=== PATIENT | female | born 1930 | race Caucasian/White ===

== ENCOUNTER → 2017-04-27 | Outpatient (CLI) | payer MEDICARE, BC ==
[~2017-04-27] MED LIST: ASPIRIN PO; LISINOPRIL PO; STATIN PO
[2017-04-27 14:56] LABS: POC - CREATININE 1.26 mg/dL (0.44-1.03)
== END | disposition home or self-care (01) ==
LOC: CCAT 13:39
PROVIDERS: Internal Medicine Medical Oncology
DX: C83.30 Diffuse large B-cell lymphoma, unspecified site (principal)
CPT/HCPCS: 82565

== ENCOUNTER → 2017-05-01 | Outpatient (CLI) | payer MEDICARE, BC ==
--- NOTE | ~2017-05-01 | CT2 ---
[facility] A Service of [facility] RADIOLOGY TEXT RESULTS PATIENT: ANNE BONILLA [facility] UN[facility] #: [id number] AGE: [address]: Kole Golden MD SEX: F ORDER DR: [id number] [facility] [address] [place], [place] [address] [id number] O MR#: [id number] [facility] #: [id number] NAME: ANNE BONILLA : 1930 SEX: F STUDY DATE/TIME: 05/01/2017 10:12 UNIT: [facility] ROOM: STUDY DESCRIPTION: CT Abd and Pelv W Cont Attending Physician: Kole Golden M.D. Referring Physician: Kole Golden M.D. Ordering Physician: Kole Golden M.D. Primary Care Physician: Dianelys Dailey M.D. MEDICAL IMAGING REPORT This report is preliminary unless electronic signature is present EXAM Abdomen and pelvis CT with contrast 05/01/2017 INDICATIONS 86-year-old female with history of diffuse large B-cell lymphoma. Observation for suspected malignant neoplasm. Active malignancy. Abnormal PET CT. TECHNIQUE Contrast enhanced CT abdomen and pelvis was performed. This CT exam was performed with one or more of the following radiation dose reduction techniques: automatic exposure control, adjustment of mA and/or kV according to patient size, and iterative reconstruction. COMPARISON Correlation made with PET CT 04/26/[address] abdomen: Please see separately dictated CT chest same date for further details regarding chest findings. Included lung bases demonstrate emphysema and mild atelectasis. No aortic aneurysm or dissection. There is moderately severe atherosclerotic change of the aorta. The spleen is prominent but otherwise unremarkable. The adrenal glands are normal. Pancreas and gallbladder are unremarkable. Liver demonstrates mild fatty infiltration. Kidneys demonstrate cortical thinning bilaterally but no hydronephrosis. CT Pelvis: Bladder demonstrates mild wall thickening and there is induration of the fat planes around the bladder that could reflect mild cystitis. Correlate with urinalysis. The uterus is atrophic. There is uncomplicated [facility] A Service of [facility] RADIOLOGY TEXT RESULTS PATIENT: ANNE BONILLA LOCATION: [facility] : 30 UNIT #: [id number] AGE: [address]: Kole Golden MD SEX: F ORDER DR: diverticulosis of the colon. Stool burden most characteristic of constipation. Appendix normal. There is no evidence of bowel obstruction. There is abnormal adenopathy in the low abdomen and pelvis. There is encasement of the right external iliac artery by lymphatic tissue measuring up to 2.8 x 4.3 cm. This was hypermetabolic on PET as well. More inferiorly, there is a pelvic sidewall adenopathy extending into the external iliac chain on the right measuring up to 3.3 x 6.2 cm and on the left measuring up to 2.7 x 1.1 cm, also hypermetabolic on PET. There is a inguinal adenopathy encasing the inguinal vessels bilaterally measuring up to 4.3 x 2.9 cm on the right and 3.5 x 2.8 cm on the left. This was also hypermetabolic on PET. No drainable fluid collection in the pelvis. Please note that the adenopathy in the pelvis and inguinal canals is extensive and the reference measurements provided above are for index areas of prominent lymphoid tissue bilaterally. There is an extension of abnormal appearing lymphoid tissue into the right lower quadrant abutting multiple bowel loops. Osseous structures demonstrate no suspicious bone lesion. There are degenerative changes. IMPRESSION 1. Abnormal examination. There is adenopathy primarily involving the low abdomen and pelvis and inguinal canals bilaterally right greater than left. This was also hypermetabolic on PET and most characteristic of metastatic disease. Please see reference measurements in the body of the report for further details. 2. There is also abnormal lymphatic tissue extending into the right lower quadrant and abutting small and large bowel loops. No evidence of bowel obstruction at this time. 3. Wall thickening of the bladder which may reflect incomplete distension or mild cystitis. 4. Fatty infiltration of the liver. 5. Uncomplicated diverticulosis. Dictated by... Jose Perla M.D. THIS IS AN ELECTRONICALLY VERIFIED REPORT Jose Perla M.D. at 05/02/2017 5:18 PM JLY/to TD: 05/01/2017 16:39 JOB #: [id number] MEDICAL IMAGING REPORT Page 1 of 1 COPY
--- NOTE | ~2017-05-01 | CT55 ---
[facility] A Service of [facility] RADIOLOGY TEXT RESULTS PATIENT: ANNE BONILLA LOCATION: [facility] : 30 UNIT #: [id number] AGE: [address]: Kole Golden MD SEX: F ORDER DR: [id number] [facility] [address] [place], [place] [address] [id number] O MR#: [id number] [facility] #: [id number] NAME: ANNE BONILLA : 1930 SEX: F STUDY DATE/TIME: 05/01/2017 10:12 UNIT: [facility] ROOM: STUDY DESCRIPTION: CT Chest W Con Attending Physician: Kole Golden M.D. Referring Physician: Kole Golden M.D. Ordering Physician: Kole Golden M.D. Primary Care Physician: Dianelys Dailey M.D. MEDICAL IMAGING REPORT This report is preliminary unless electronic signature is present EXAM CT of the chest with contrast, 05/01/2017 INDICATION 86-year-old female with history of lymphoma. Newly diagnosed lymphoma. Large mass in the right clavicle area for 5 years that has been growing slowly. No history of chemotherapy or radiation therapy. No prior surgeries. Diffuse large B-cell lymphoma. Observation for suspected malignant neoplasm, active malignancy. TECHNIQUE Contrast enhanced CT scan chest was performed. This CT exam was performed with one or more of the following radiation dose reduction techniques: automatic exposure control, adjustment of mA and/or kV according to patient size, and iterative reconstruction. COMPARISON Correlation is made with PET/CT, 04/26/2017. FINDINGS CT CHEST: There is motion degradation. No effusion. There is no suspicious pulmonary nodule. No evidence of pneumonia. There is a supraclavicular mass on the right measuring 4.1 cm. This corresponds to the PET positive mass. Please see the prior PET/CT for further details. There is also a nodule in the right paramedian breast measuring 14.0 mm, also PET positive. There is asymmetric fullness with skin thickening of the right breast. These findings in breast could be better assessed with mammography if not previously performed. There is no axillary adenopathy on either side. There is an intrathoracic goiter versus a borderline enlarged anterior mediastinal lymph node just inferior to the thoracic inlet measuring 10.0 mm. A hypermetabolic node is favored STS. [facility] A Service of [facility] RADIOLOGY TEXT RESULTS PATIENT: ANNE BONILLA LOCATION: [facility] : 30 UNIT #: [id number] AGE: [address]: Kole Golden MD SEX: F ORDER DR: based upon correlation with the prior PET/CT. There is no pericardial effusion. Aorta demonstrates atherosclerotic change but no aneurysm or dissection. Included upper abdomen demonstrates atherosclerotic change of the aorta but no aneurysm or dissection. No acute finding in the upper abdomen. Please see the separately dictated abdomen and pelvis CT same date for further details. No suspicious bone lesion. IMPRESSION 1. Patient has a large supraclavicular mass on the right. This measures at least 4.1 cm. It was PET positive and is most characteristic of malignancy. 2. There is fullness of the right breast with skin thickening and there is a 14.0 mm nodule in the medial aspect of the right breast also PET positive on the prior PET scan. This may reflect contiguous involvement of the right breast with the patient's reported history of lymphoma. This could be better assessed with mammography if not recently performed. 3. Abnormal anterior mediastinal lymph node measuring 1.0 cm, hypermetabolic on PET as well. 4. Lungs demonstrate emphysematous change but there is no suspicious lung nodule or pleural effusion. 5. Upper abdomen demonstrates no acute finding. 6. No suspicious bone lesion. Dictated by... Jose Perla M.D. THIS IS AN ELECTRONICALLY VERIFIED REPORT Jose Perla M.D. at 05/01/2017 4:34 PM Jose TD: 05/01/2017 16:25 JOB #: [id number] MEDICAL IMAGING REPORT Page 1 of 1 COPY
[2017-05-01 11:31] LABS: POC - CREATININE 1.11 mg/dL (0.44-1.03)
== END | disposition home or self-care (01) ==
LOC: CCAT 07:52
PROVIDERS: Internal Medicine Medical Oncology
DX: C83.30 Diffuse large B-cell lymphoma, unspecified site (principal); R22.1 Localized swelling, mass and lump, neck; N63 Unspecified lump in breast; K76.0 Fatty (change of) liver, not elsewhere classified; K57.90 Diverticulosis of intestine, part unspecified, without perforation or abscess without bleeding
CPT/HCPCS: 71260; 74177; 82565; 96360; 96361; Q9967

== ENCOUNTER → 2017-05-05 | Outpatient (CLI) | payer MEDICARE, BC ==
[~2017-05-05] VITALS: Ht 154.9 cm; Wt 43.2 kg
--- NOTE | ~2017-05-05 | XA91 ---
[facility] A Service of [facility] RADIOLOGY TEXT RESULTS PATIENT: ANNE BONILLA LOCATION: [facility] : 30 UNIT #: [id number] AGE: [address]: Kole Golden MD SEX: F ORDER DR: [id number] [facility] [address] [place], [place] [address] [id number] O MR#: [id number] Acc #: [id number] NAME: ANNE BONILLA : 1930 SEX: F STUDY DATE/TIME: 05/05/2017 9:45 UNIT: [facility] ROOM: STUDY DESCRIPTION: XA CVC Tunneled W Port Attending Physician: Kole Golden M.D. Referring Physician: Kole Golden M.D. Ordering Physician: Kole Golden M.D. Primary Care Physician: Dianelys Dailey M.D. MEDICAL IMAGING REPORT This report is preliminary unless electronic signature is present EXAM Port-A-Cath insertion, 05/05/2017 HISTORY IV access needed for chemotherapy. PROCEDURE Informed consent was obtained from the patient. Fentanyl and Versed were administered for IV conscious sedation with hemodynamic monitoring provided by the nursing staff throughout the procedure. Total sedation time 45 minutes. Full standard sterile technique was utilized including sterile preparation, barrier draping, and sterile gowns and gloves as well as caps and masks. FINDINGS Fluoroscopic guidance was utilized to confirm catheter tip position and ultrasound guidance was used to guide venous access and confirm vessel patency. Ultrasound guidance was performed sterilely with a sterile probe cover in standard fashion. After local anesthesia using ultrasound guidance, the left internal jugular vein was accessed via standard sterile technique using a Seldinger method, peel-away sheath inserted, and then a pocket created over the left upper chest after local anesthesia using a combination of blunt and sharp dissection. Port-A-Cath hub was inserted in the pocket and the catheter then tunneled to the venotomy site. It was then measured and cut to length and inserted via a peel-away sheath and affixed to the skin with its lower tip in the lower SVC and/or upper right atrium. The hub was accessed, confirmed blood return and then was flushed and packed with heparin solution according to standard protocol. The venotomy site was closed with and a deep fascial 3-0 Vicryl suture and N-butylcyanoacrylate glue. The pocket incision was closed with interrupted deep fascial 3-0 Vicryl suture and running subcuticular 4-0 Monocryl suture and STS. [facility] A Service of [facility] RADIOLOGY TEXT RESULTS PATIENT: ANNE BONILLA LOCATION: [facility] : 30 UNIT #: [id number] AGE: [address]: Kole Golden MD SEX: F ORDER DR: N-butylcyanoacrylate glue. Spot radiograph confirmed catheter tip position. Patient tolerated the procedure well without complication. Total fluoro time 0.8 minutes with a single fluoroscopic spot image obtained. IMPRESSION Successful ultrasound and fluoroscopically guided insertion of a left IJ [id number] tip in the lower SVC ready for immediate use. Dictated by... Pineda Richmond M.D. THIS IS AN ELECTRONICALLY VERIFIED REPORT Pineda Richmond M.D. at 05/11/2017 5:01 PM AYLA/hodan TD: 05/09/2017 14:09 JOB #: [id number] MEDICAL IMAGING REPORT Page 1 of 1 COPY
[2017-05-05 08:36] LABS: HEMATOCRIT 31.8 % (35.0-45.0); MEAN CELL VOLUME 83.9 FL (83-96); MEAN CORPUSCULAR HEMOGLOBIN 28.9 PG (28-34); MEAN CORPUSCULAR HGB CONC 34.5 g/dL (30-36); MEAN PLATELET VOLUME 7.2 FL (6.5-11.5); RED BLOOD COUNT 3.79 X10e (3.90-5.30); RED CELL DISTRIBUTION WIDTH 13.8 % (11.0-15.5); WHITE BLOOD COUNT 5.1 X10e3 (4.0-10.5)
[2017-05-05 08:52] LABS: INR 1.1; PARTIAL THROMBOPLASTIN TIME 24.8 SECONDS (23.5-31.3); PROTHROMBIN TIME (PATIENT) 11.9 SECONDS (10.0-11.7)
== END | disposition home or self-care (01) ==
LOC: CIVR 08:00
PROVIDERS: Internal Medicine Medical Oncology
DX: C83.30 Diffuse large B-cell lymphoma, unspecified site (principal); Z45.2 Encounter for adjustment and management of vascular access device
CPT/HCPCS: 36415; 76937; 77001; 85027; 85610; 85730; 99152; 99153; C1788; J0690; J1642; J2250; J3010